=== PATIENT | male | born 1960 | race Caucasian/White ===

== ENCOUNTER 2017-09-13 03:23 | Emergency (ER) | payer OTHER ==
[2017-09-13] MEDS: CHLORDIAZEPOXIDE 25 MG CAP PO (03:59)
[2017-09-13] MEDS: ATENOLOL 50 MG TAB PO (07:39)
== END 2017-09-13 07:40 | disposition home or self-care (01) ==
LOC: E/R 03:23
DX: S69.91XA Unspecified injury of right wrist, hand and finger(s), initial encounter (principal); I10 Essential (primary) hypertension; R93.0 Abnormal findings on diagnostic imaging of skull and head, not elsewhere classified; W18.30XA Fall on same level, unspecified, initial encounter; Y92.9 Unspecified place or not applicable
CPT/HCPCS: 70450; 73090-RT; 73110-RT; 99284-25

== ENCOUNTER 2018-01-23 14:41 | Emergency (ER) | payer OTHER | END 2018-01-23 17:32 | disposition home or self-care (01) | LOC: FTE 14:41 | DX: S70.12XA Contusion of left thigh, initial encounter (principal); I10 Essential (primary) hypertension; W01.0XXA Fall on same level from slipping, tripping and stumbling without subsequent striking against object, initial encounter; Y92.481 Parking lot as the place of occurrence of the external cause | CPT/HCPCS: 73550; 73552; 93971; 99284-25 ==

== ENCOUNTER 2018-07-15 08:10 | Inpatient (IN) | payer OTHER ==
[2018-07-15] MEDS ORDERED: CEFAZOLIN 1 GM INJ ×2 (09:42→10:03)
[2018-07-15] MEDS ORDERED: HEPARIN 1000 UNITS/ML 10 ML INJ (09:43)
[2018-07-15] MEDS ORDERED: PROPOFOL 20 ML (10:03)
[2018-07-15] MEDS ORDERED: MIDAZOLAM 1 MG/ML 2 ML INJ (10:03)
[2018-07-15] MEDS ORDERED: ROCURONIUM 50 MG INJ (10:03)
[2018-07-15] MEDS ORDERED: METOCLOPRAMIDE 10 MG INJ (11:27)
[2018-07-15] MEDS ORDERED: ONDANSETRON 4 MG INJ (11:27)
[2018-07-15] MEDS ORDERED: DEXAMETHASONE 4 MG/ML 5 ML INJ (11:27)
[2018-07-15] MEDS ORDERED: EPHEDrine 25 MG/5 ML SYG (12:19)
[2018-07-15] MEDS: GELATIN SIZE 100 SPONGE (12:24)
[2018-07-15] MEDS: BUPIVACAINE 0.5% (SDV) 30 ML INJ (12:24)
[2018-07-15] MEDS: POLYMYXIN/BACITRACIN 1L IRRIG IRR (12:25)
[2018-07-15] MEDS: LIDOCAINE 1%/EPI (1:100,000) (MDV) 20 ML (12:25)
[2018-07-15] MEDS: THROMBIN 5000 UNIT VIAL TOP (12:25)
[2018-07-15] MEDS ORDERED: LABETALOL HCL 20MG INJ IV (15:00)
[2018-07-15] MEDS ORDERED: NALOXONE (0.4 MG/ML) INJ IV (15:00)
[2018-07-15] MEDS ORDERED: METOCLOPRAMIDE 10 MG INJ IV (15:00)
[2018-07-15] MEDS ORDERED: hydrALAzine 20 MG INJ IV (15:00)
[2018-07-15] MEDS ORDERED: FENTAnyl 50 MCG/ML VIAL IV ×2 (15:00)
[2018-07-15] MEDS ORDERED: HYDROmorphONE 0.5 MG/0.5 ML SYG IV (15:00)
[2018-07-15] MEDS ORDERED: BISACODYL 10 MG SUPP PR (15:00)
[2018-07-15] MEDS ORDERED: OXYCODONE/ACETAMINOPHEN (5/325) TAB PO ×2 (15:00)
[2018-07-15] MEDS ORDERED: ONDANSETRON 4 MG INJ IV (15:00)
[2018-07-15] MEDS ORDERED: HYDROmorphONE 1 MG/5 ML IV SYRINGE IV ×2 (15:00)
[2018-07-15] MEDS ORDERED: CYCLOBENZAPRINE 10 MG TAB PO (15:00)
[2018-07-15] MEDS ORDERED: DIPHENHYDRAMINE 50 MG INJ IV (15:00)
[2018-07-15] MEDS: MEPERIDINE 25 MG INJ IV (15:09)
[2018-07-15] MEDS: FENTAnyl 50 MCG/ML VIAL IV (15:09)
[2018-07-15] MEDS: ONDANSETRON 4 MG INJ IV (15:09)
[2018-07-15] MEDS: CEFAZOLIN 1 GM/50 ML (PMX) 50 ML IVPB ×2 (15:10→23:12)
[2018-07-15] MEDS: HYDROmorphONE 1 MG/5 ML IV SYRINGE IV (15:10)
[2018-07-15 16:10] LABS: ADD MAN DIFF? NO
[2018-07-15 16:13] LABS: WHITE BLOOD COUNT 11.1 10^3/ul (4.8-10.8)
[2018-07-15 16:13] LABS: ABNORMAL IP MESSAGE 1; BASOPHILS % 0.1 % (0.0-2.0); HEMOGLOBIN 13.9 g/dl (14.0-18.0); LYMPHOCYTES # 0.3 10^3/ul (0.8-2.9); LYMPHOCYTES % 2.5 % (15.0-51.0); MEAN CORPUSCULAR HEMOGLOBIN 30.2 pg (29.0-33.0); MEAN CORPUSCULAR HGB CONC 33.9 g/dl (32.0-37.0); MEAN CORPUSCULAR VOLUME 88.9 fl (82.0-101.0); MEAN PLATELET VOLUME 12.5 fl (7.4-10.4); MONOCYTE # 0.1 10^3/ul (0.3-0.9); MONOCYTES % 0.6 % (0.0-11.0); NEUTROPHIL # 10.7 10^3/ul (1.6-7.5); NEUTROPHILS % 96.4 % (39.0-77.0); PLATELET COUNT 161 10^3/UL (140-415); POSITIVE DIFF @See below; RED BLOOD COUNT 4.61 10^6/ul (4.70-6.10); RED CELL DISTRIBUTION WIDTH 12.1 % (11.5-14.5)
[2018-07-15 16:32] LABS: ALANINE AMINOTRANSFERASE 28 IU/L (13-69); ALBUMIN 3.9 g/dl (3.3-4.9); ALBUMIN/GLOBULIN RATIO 1.25; ALKALINE PHOSPHATASE 68 IU/L (42-121); ANION GAP 11 (5-13); ASPARTATE AMINO TRANSFERASE 34 IU/L (15-46); BILIRUBIN,INDIRECT 0.1 mg/dl (0-1.1); BILIRUBIN,TOTAL 0.1 mg/dl (0.2-1.3); BLOOD UREA NITROGEN 12 mg/dl (7-20); CALCIUM 8.9 mg/dl (8.4-10.2); CARBON DIOXIDE 27 mmol/L (21-31); CHLORIDE 103 mmol/L (97-110); Estimated GFR > 60 mL/min (>60); GLUCOSE 182 mg/dl (70-220); MAGNESIUM 1.5 mg/dl (1.7-2.5); PHOSPHORUS 4.1 mg/dl (2.5-4.9); POTASSIUM 3.4 mmol/L (3.5-5.1); SODIUM 141 mmol/L (135-144)
[2018-07-15] MEDS: D5W-0.45 NACL + KCL 20 MEQ 1,000 ML IV (16:47)
[2018-07-15] MEDS: traMADol 50 MG TAB PO ×3 (17:08→23:11)
[2018-07-15] MEDS: HYDROCODONE/APAP (10/325) TAB PO (18:49)
[2018-07-15] MEDS: DOCUSATE SODIUM 100 MG CAP PO (20:57)
[2018-07-16] MEDS: HYDROCODONE/APAP (10/325) TAB PO ×3 (00:20→12:20)
[2018-07-16] MEDS: D5W-0.45 NACL + KCL 20 MEQ 1,000 ML IV ×2 (00:43→10:43)
[2018-07-16] MEDS: traMADol 50 MG TAB PO ×4 (03:14→15:00)
[2018-07-16] MEDS: PANTOPRAZOLE 40 MG INJ IV (05:38)
[2018-07-16] MEDS: CEFAZOLIN 1 GM/50 ML (PMX) 50 ML IVPB (06:02)
[2018-07-16] MEDS: DOCUSATE SODIUM 100 MG CAP PO (08:38)
[2018-07-16] MEDS: LOSARTAN 25 MG TAB PO (08:38)
[2018-07-16] MEDS: POTASSIUM CHLORIDE 20 MEQ POWDER FOR ORAL SOLN PO (08:39)
[2018-07-16] MEDS ORDERED: LOSARTAN 25 MG TAB PO (09:00)
[2018-07-16] MEDS ORDERED: MAGNESIUM SULFATE 2 GM/50 ML 50 ML IVPB (09:30)
[2018-07-16] MEDS: MAGNESIUM SULFATE 1 GM/D5W 100 ML IVPB ×2 (12:20→12:23)
== END 2018-07-16 15:15 | disposition home or self-care (01) | DRG 473 ==
LOC: REC 08:10 → MS1 16:30
PROC: 0RG20A0 Fusion of 2 or more Cervical Vertebral Joints with Interbody Fusion Device, Anterior Approach, Anterior Column, Open Approach (ICD-10-PCS; principal; 2018-07-15 10:00)
PROC: 0RB30ZZ Excision of Cervical Vertebral Disc, Open Approach (ICD-10-PCS; 2018-07-15 10:00)
PROC: 4A11X4G Monitoring of Peripheral Nervous Electrical Activity, Intraoperative, External Approach (ICD-10-PCS; 2018-07-15 10:00)
DX: M50.122 Cervical disc disorder at C5-C6 level with radiculopathy (principal); M48.02 Spinal stenosis, cervical region; I10 Essential (primary) hypertension; G47.30 Sleep apnea, unspecified; F31.9 Bipolar disorder, unspecified
CPT/HCPCS: 72040; 72052; 80053; 83735; 84100; 85025; 87086; 97161

== ENCOUNTER 2018-08-21 01:27 | Emergency (ER) | payer OTHER ==
[2018-08-21] MEDS: LORAZEPAM 2 MG INJ IV (04:52)
== END 2018-08-21 05:50 | disposition home or self-care (01) ==
LOC: E/R 01:27
DX: G47.09 Other insomnia (principal); F41.9 Anxiety disorder, unspecified; I10 Essential (primary) hypertension
CPT/HCPCS: 96374; 99284-25; J2060

== ENCOUNTER 2018-11-17 19:11 | Emergency (ER) | payer OTHER ==
[2018-11-17] MEDS: DILTIAZEM 30 MG TAB PO (20:52)
== END 2018-11-17 23:32 | disposition home or self-care (01) ==
LOC: FTE 19:11
DX: M54.2 Cervicalgia (principal); I10 Essential (primary) hypertension
CPT/HCPCS: 70490; 99284-25